=== PATIENT | female | born 1960 | race Caucasian/White ===

== ENCOUNTER 2017-07-21 20:44 | Emergency (ER) | END 2017-07-22 02:42 | disposition left against medical advice (07) ==

== ENCOUNTER 2017-07-24 06:16 | Emergency (ER) | END 2017-07-24 09:52 | disposition home or self-care (01) ==

== ENCOUNTER 2018-05-06 07:21 | Emergency (ER) | END 2018-05-06 14:05 | disposition home or self-care (01) ==